=== PATIENT | male | born 1965 | race Two or more races ===

== ENCOUNTER → 2020-10-25 | Outpatient (CLI) | payer OTHER ==
[~2020-10-25] MED LIST: GABA-826 PO; MELO7.5T31 PO; METH-639 PO
[2020-10-25 09:29] LABS: BASOPHILS % (AUTO) 1 % (0-1); EOSINOPHILS % (AUTO) 2 % (1-7); LYMPHOCYTES % (AUTO) 29 % (22-44); MEAN CORPUSCULAR HEMOGLOBIN 32.7 pg (27.5-34.5); MEAN CORPUSCULAR HGB CONC 34.6 g/dL (33.2-36.2); MEAN PLATELET VOLUME 10.7 fL (7.4-10.4); MONOCYTES % (AUTO) 10 % (2-9); NEUTROPHILS % (AUTO) 59 % (42-75); PLATELET COUNT 134 x10^3/uL (130-400); RED BLOOD COUNT 4.95 x10^6/uL (4.38-5.82); RED CELL DISTRIBUTION WIDTH 13.9 % (9.4-14.8)
[2020-10-25 09:41] LABS: ALANINE AMINOTRANSFERASE 38 U/L (12-78); ALBUMIN 3.6 g/dL (3.4-5.0); ANION GAP 6 mmol/L (5-15); CHLORIDE 107 mmol/L (98-107)
[2020-10-25 09:44] LABS: ALKALINE PHOSPHATASE 70 U/L (45-117); BILIRUBIN,TOTAL 0.7 mg/dL (0.2-1.0); CREATININE 0.76 mg/dL (0.7-1.3); TOTAL PROTEIN 7.9 g/dL (6.4-8.2)
[2020-10-25 09:45] LABS: INTERNATIONAL NORMALIZED RATIO 0.98 (0.93-1.1); PROTHROMBIN TIME 10.5 Seconds (9.6-11.5)
== END | disposition home or self-care (01) ==
LOC: STAR 08:17
PROVIDERS: ATTEND Neurological Surgery
DX: Z01.818 Encounter for other preprocedural examination (principal); M48.02 Spinal stenosis, cervical region; Z20.822 Contact with and (suspected) exposure to COVID-19
CPT/HCPCS: 36415; 71046; 80053; 85025; 85610; 85730; 93005; U0003; U0005

== ENCOUNTER 2020-10-31 07:07 | Inpatient (IN) | payer OTHER ==
[~2020-10-31] VITALS: Ht 167.6 cm; Wt 90.1 kg
[~2020-10-31 07:07] MED LIST changes: +BUPIVACAINE/PF 0.5% ONE; +EPINEPHRINE 1 MG/ML, 1ML ONE; +GENTAMICIN 80 MG/2 ML ONE; +THROMBIN 20,000 UNIT VIAL TP ONE; +VANCOMYCIN 1,000 MG ONE
[2020-10-31 07:46] VITALS: BP 147/89
[2020-10-31] MEDS ORDERED: LACTATED RINGERS 1,000 ML IV SCH (08:00)
[2020-10-31] MEDS ORDERED: CHLORHEXIDINE 15 ML UDC PO ONE (08:00)
[2020-10-31] MEDS ORDERED: FENTANYL PF 250 MCG/5ML ONE (08:50)
[2020-10-31] MEDS ORDERED: MIDAZOLAM 1 MG/ML, 2ML ONE (08:50)
[2020-10-31] MEDS ORDERED: CEFAZOLIN 1,000 MG ONE (09:40)
[2020-10-31] MEDS ORDERED: ROCURONIUM 10 MG/ML,10ML ONE (09:40)
[2020-10-31] MEDS ORDERED: KETOROLAC 30 MG/1 ML ONE (09:40)
[2020-10-31] MEDS ORDERED: PROPOFOL 10 MG/ML, 20ML ONE (09:40)
[2020-10-31] MEDS ORDERED: DEXAMETHASONE 4 MG/ML, 1ML ONE (09:40)
[2020-10-31] MEDS ORDERED: ONDANSETRON 2MG/ML, 2ML ONE (09:40)
[2020-10-31] MEDS ORDERED: SUCCINYLCHOLINE 20 MG/ML, 10ML ONE (09:40)
[2020-10-31] MEDS ORDERED: PROMETHAZINE 25 MG/ML, 1ML IV PRN (11:30)
[2020-10-31] MEDS ORDERED: DIAZEPAM 5 MG/ML, 2ML IV PRN ×2 (11:30)
[2020-10-31] MEDS ORDERED: hydrALAzine 20 MG/ML, 1ML IV PRN (11:30)
[2020-10-31] MEDS ORDERED: ONDANSETRON 2MG/ML, 2ML IVPush PRN (11:30)
[2020-10-31] MEDS ORDERED: ALBUTEROL SULFATE 2.5 MG/3 ML NPPB PRN (11:30)
[2020-10-31] MEDS ORDERED: LABETALOL 5MG/ML, 20ML IV PRN ×2 (11:30→14:30)
[2020-10-31] MEDS ORDERED: OXYcodone 5 MG/5 ML ORAL.SOL UDC PO PRN (11:30)
[2020-10-31] MEDS ORDERED: METOCLOPRAMIDE 5 MG/ML, 2ML IV PRN (11:30)
[2020-10-31] MEDS ORDERED: MEPERIDINE/PF 25MG/0.5ML IVPush PRN (11:30)
[2020-10-31] MEDS ORDERED: KETOROLAC 30 MG/1 ML IV PRN (11:30)
[2020-10-31] MEDS ORDERED: FENTANYL PF 100 MCG/2ML ONE (11:40)
[2020-10-31] MEDS ORDERED: OXYcodone 5 MG/5 ML ORAL.SOL UDC ONE (11:40)
[2020-10-31] MEDS: FENTANYL PF 100 MCG/2ML IV PRN ×2 (11:43→11:48)
[2020-10-31] MEDS ORDERED: DIAZEPAM 5 MG/ML, 2ML ONE (11:52)
[2020-10-31] MEDS ORDERED: HYDROmorphone 1 MG/ML, 1ML INJ ONE ×2 (11:52→12:45)
[2020-10-31] MEDS: HYDROmorphone 1 MG/ML, 1ML INJ IV PRN ×4 (11:53→12:52)
[2020-10-31] MEDS ORDERED: ACETAMINOPHEN 500 MG TABLET PO PRN (14:30)
[2020-10-31] MEDS ORDERED: BISACODYL 10 MG SUPP PR PRN (14:30)
[2020-10-31] MEDS ORDERED: METHOCARBAMOL 1,000 MG in DEXTROSE 5% 100 ML IV ONE (14:30)
[2020-10-31] MEDS ORDERED: ONDANSETRON 2MG/ML, 2ML IV PRN (14:30)
[2020-10-31] MEDS ORDERED: HYDROcodone/APAP 10/325 MG TABLET PO PRN (14:30)
[2020-10-31] MEDS ORDERED: DIPHENHYDRAMINE 50 MG/ML, 1ML IM PRN (14:30)
[2020-10-31] MEDS ORDERED: ACETAMINOPHEN 650 MG SUPP PR PRN (14:30)
[2020-10-31] MEDS ORDERED: DIPHENHYDRAMINE 50 MG/ML, 1ML IVPush PRN (14:30)
[2020-10-31] MEDS ORDERED: DIPHENHYDRAMINE 25 MG CAPSULE PO PRN (14:30)
[2020-10-31] MEDS ORDERED: morphine SULFATE 10 MG/ML, 1ML IV PRN (14:30)
[2020-10-31] MEDS ORDERED: MAGNESIUM HYDROXIDE 8%, 30ML UDC PO PRN (14:30)
[2020-10-31] MEDS ORDERED: PROMETHAZINE 25 MG/ML, 1ML IM PRN (14:30)
[2020-10-31] MEDS: D5%-0.9% NACL+KCL 20MEQ 1,000 ML IV SCH (17:52)
[2020-10-31] MEDS: CEFAZOLIN PMX 2GM/50ML 50 ML IVPB SCH (17:52)
[2020-10-31] MEDS: DEXAMETHASONE 4 MG/ML, 1ML IV SCH (17:53)
[2020-10-31 19:47] VITALS: BP 144/83
[2020-10-31] MEDS ORDERED: ZOLPIDEM 5MG TABLET PO PRN (21:00)
[2020-11-01 00:05] VITALS: BP 112/69
[2020-11-01] MEDS: DEXAMETHASONE 4 MG/ML, 1ML IV SCH ×2 (00:21→06:50)
[2020-11-01] MEDS: CEFAZOLIN PMX 2GM/50ML 50 ML IVPB SCH (02:20)
[2020-11-01] MEDS: METHOCARBAMOL 750 MG in DEXTROSE 5% 100 ML IV SCH ×2 (03:39→10:51)
[2020-11-01 04:22] VITALS: BP 122/73
[2020-11-01] MEDS: D5%-0.9% NACL+KCL 20MEQ 1,000 ML IV SCH (06:30)
[2020-11-01 07:21] VITALS: BP 147/74
[2020-11-01] MEDS ORDERED: HYDR1TAB53 PO (08:58)
[2020-11-01] MEDS ORDERED: METH-640 PO (08:58)
[2020-11-01] MEDS ORDERED: SENN-211 PO (08:58)
[2020-11-01] MEDS ORDERED: GABAPENTIN 100 MG CAPSULE PO SCH (09:00)
[2020-11-01] MEDS ORDERED: SENNA/DOCUSATE TABLET PO SCH (09:00)
[2020-11-01 10:38] VITALS: BP 127/77
[2020-11-02] MEDS ORDERED: METHOCARBAMOL 750 MG TABLET PO SCH (15:00)
== END 2020-11-01 11:06 | disposition home or self-care (01) | DRG 472 ==
LOC: OR 07:07 → 4NE 13:32 → OR 19:48 → 4NE 19:48
PROVIDERS: ADMIT Neurological Surgery; ATTEND Neurological Surgery
PROC: 0RG20A0 Fusion of 2 or more Cervical Vertebral Joints with Interbody Fusion Device, Anterior Approach, Anterior Column, Open Approach (ICD-10-PCS; 2020-10-31)
PROC: 0RB30ZZ Excision of Cervical Vertebral Disc, Open Approach (ICD-10-PCS; principal; 2020-10-31 09:00)
DX: M48.02 Spinal stenosis, cervical region (principal); G95.20 Unspecified cord compression; Z20.822 Contact with and (suspected) exposure to COVID-19
CPT/HCPCS: 36415; 72040; S0020; 86850; 86900; 95938; 95941; C1713; G0378; J0171; J0690; J1100; J1170; J1885; J2250; J2405; J2704; J3010; J3360; J3370; C1762; C1889; J0330; J1580; J2800; J3480; J7120